=== PATIENT | female | born 1965 | race Caucasian/White ===

== ENCOUNTER 2023-07-21 09:17 | Day surgery (SDC) | payer OTHER, BC ==
[2023-07-21] MEDS ORDERED: Sodium Chloride 0.9% 1,000 ML IV SCH (09:45)
[2023-07-21] MEDS ORDERED: Propofol 200 MG/20 ML SDV ONE (10:32)
[2023-07-21] MEDS ORDERED: fentaNYL 100 MCG/2 ML SDV ONE (10:32)
[2023-07-21] MEDS ORDERED: Midazolam 1 MG/ML 2 ML SDV ONE (10:32)
== END 2023-07-21 13:22 | disposition home or self-care (01) ==
LOC: JP.SDS 09:17
PROVIDERS: ATTEND Surgery
DX: Z12.11 Encounter for screening for malignant neoplasm of colon (principal); Q43.8 Other specified congenital malformations of intestine; K21.9 Gastro-esophageal reflux disease without esophagitis
CPT/HCPCS: 45378; J2250; J2704; J3010; J7030

== ENCOUNTER 2023-10-07 15:38 | Emergency (ER) | payer OTHER, BC ==
[2023-10-07] MEDS ORDERED: Sodium Chloride 0.9% 10 ML Syringe FLUSH PRN ×2 (16:00→16:50)
[2023-10-07] MEDS ORDERED: HYDROmorphone 0.5 MG/0.5 ML Syringe IVPUSH ONE (16:02)
[2023-10-07 16:14] LABS: BASOPHILS ABSOLUTE AUTO 0.07 K/uL (0.00-0.10); BASOPHILS PERCENT AUTO 0.8 % (0.1-1.3); EOSINOPHILS PERCENT AUTO 8.3 % (0.0-5.4); HEMATOCRIT 41.2 % (34.3-46.0); HEMOGLOBIN 13.9 g/dL (11.2-15.5); IMMATURE GRAN PERCENT AUTO 0.2 % (0.0-0.7); LYMPHOCYTES ABSOLUTE AUTO 2.77 K/uL (0.8-3.3); MEAN CORPUSCULAR HGB CONC 33.7 g/dL (31.6-35.5); MONOCYTES ABSOLUTE AUTO 0.55 K/uL (0.20-0.90); MONOCYTES PERCENT AUTO 6.5 % (3.3-12.6); NEUTROPHILS ABSOLUTE AUTO 4.29 K/uL (1.0-7.6); NEUTROPHILS PERCENT AUTO 51.2 % (40.0-78.1); PLATELET COUNT,PLT 249 K/uL (130-375); RED BLOOD CELL COUNT 4.79 M/uL (3.77-5.24); WHITE BLOOD CELL COUNT,WBC 8.4 K/uL (3.2-11.0)
[2023-10-07 16:15] LABS: IMMATURE GRAN ABSOLUTE AUTO 0.02 K/uL (0.00-0.23)
[2023-10-07] MEDS ORDERED: Aspirin 81 MG Tab.Chew PO ONE (16:23)
[2023-10-07] MEDS ORDERED: Nitroglycerin 0.4 MG Tab.SL SL PRN (16:23)
[2023-10-07 16:36] LABS: A/G RATIO 1.2 (1.2-2.2); ALANINE AMINOTRANSFERASE,ALT 27 U/L (12-78); ALKALINE PHOSPHATASE 131 U/L (46-116); ANION GAP 12.3 mmol/L (5.0-14.0); ASPARTATE AMNIOTRANSFERASE,AST 17 U/L (15-37); BILIRUBIN TOTAL 0.1 mg/dL (0.2-1.0); BLOOD UREA NITROGEN,BUN 11 mg/dL (7-18); C-REACTIVE PROTEIN < 0.50 mg/dL (<0.50); CALCIUM 8.9 mg/dL (8.5-10.1); CARBON DIOXIDE,CO2 29 mmol/L (21-32); CHLORIDE,CL 104 mmol/L (100-108); EST CRCL DRUG DOSING (CG) 47.91 mL/min; ESTIMATED GFR 65 mL/min (>60); GLUCOSE RANDOM 101 mg/dL (74-106); POTASSIUM,K 3.3 mmol/L (3.6-5.2); PROTEIN TOTAL,TP 7.3 g/dL (6.4-8.2); SODIUM,NA 142 mmol/L (140-148)
[2023-10-07] MEDS ORDERED: Sodium Chloride 0.9% 1,000 ML IV ONE (16:40)
[2023-10-07] MEDS ORDERED: Sodium Chloride 0.9% 100 ML IV SCH (17:00)
[2023-10-07] MEDS ORDERED: Iopamidol 612 MG/ML 100 ML Bottle IV SCH (17:00)
[2023-10-07] MEDS ORDERED: Alum Hydrox/Mag Hydrox/Simeth 15 ML, Lidocaine 2% 15 ML PO ONE ×2 (18:11)
== END 2023-10-07 19:20 | disposition home or self-care (01) ==
LOC: JP.ED 15:38
DX: R10.13 Epigastric pain (principal); E78.00 Pure hypercholesterolemia, unspecified
CPT/HCPCS: 36415; 71045; 74177; 80053; 83605; 83690; 84484; 85025; 86140; 93005; 96361; 96374; 99285; A9270; J1170; J3490; J7030; Q9967; 93010; 99284

== ENCOUNTER 2024-04-12 16:39 | Day surgery (SDC) | payer BC, OTHER ==
[2024-04-12 18:44] LABS: BASOPHILS ABSOLUTE AUTO 0.05 K/uL (0.00-0.10); BASOPHILS PERCENT AUTO 0.3 % (0.1-1.3); EOSINOPHILS ABSOLUTE AUTO 0.07 K/uL (0.00-0.40); EOSINOPHILS PERCENT AUTO 0.5 % (0.0-5.4); HEMATOCRIT 43.2 % (34.3-46.0); HEMOGLOBIN 14.8 g/dL (11.2-15.5); IMMATURE GRAN ABSOLUTE AUTO 0.06 K/uL (0.00-0.23); IMMATURE GRAN PERCENT AUTO 0.4 % (0.0-0.7); LYMPHOCYTES PERCENT AUTO 12.9 % (11.4-47.7); MEAN CORPUSCULAR HEMOGLOBIN 28.7 pg (31.6-35.5); MEAN CORPUSCULAR HGB CONC 34.3 g/dL (31.6-35.5); MEAN CORPUSCULAR VOLUME 83.7 fL (81.4-99.0); MONOCYTES ABSOLUTE AUTO 1.06 K/uL (0.20-0.90); MONOCYTES PERCENT AUTO 6.9 % (3.3-12.6); NEUTROPHILS ABSOLUTE AUTO 12.22 K/uL (1.0-7.6); PLATELET COUNT,PLT 287 K/uL (130-375); RED BLOOD CELL COUNT 5.16 M/uL (3.77-5.24); WHITE BLOOD CELL COUNT,WBC 15.5 K/uL (3.2-11.0)
[2024-04-12 19:04] LABS: PROTHROMBIN TIME 9.9 sec (9.2-10.6); PTT,PARTIAL THROMBOPLSTIN TIME 28.6 sec (21.8-27.3)
[2024-04-12 19:07] LABS: A/G RATIO 1.1 (1.2-2.2); ALANINE AMINOTRANSFERASE,ALT 75 U/L (12-78); ALBUMIN 4.2 g/dL (3.4-5.0); ALKALINE PHOSPHATASE 144 U/L (46-116); ANION GAP 9.5 mmol/L (5.0-14.0); ASPARTATE AMNIOTRANSFERASE,AST 49 U/L (15-37); BILIRUBIN TOTAL 0.5 mg/dL (0.2-1.0); BLOOD UREA NITROGEN,BUN 17 mg/dL (7-18); CALCIUM 9.4 mg/dL (8.5-10.1); CARBON DIOXIDE,CO2 29 mmol/L (21-32); CHLORIDE,CL 102 mmol/L (100-108); CREATININE 1.2 mg/dL (0.6-1.0); EST CRCL DRUG DOSING (CG) 45.42 mL/min; ESTIMATED GFR 52 mL/min (>60); GLUCOSE RANDOM 121 mg/dL (74-106); POTASSIUM,K 3.9 mmol/L (3.6-5.2); PROTEIN TOTAL,TP 8.1 g/dL (6.4-8.2); SODIUM,NA 140 mmol/L (140-148); TROPONIN I HIGH SENSITIVITY 13.3 pg/mL (<=60.3)
[2024-04-12] MEDS: Pantoprazole 40 MG Vial IVPUSH ONE (19:14)
[2024-04-12] MEDS: diphenhydrAMINE 50 MG/ML SDV IVPUSH ONE (19:15)
[2024-04-12] MEDS: Prochlorperazine 10 MG/2 ML SDV IVPUSH ONE (19:15)
[2024-04-12] MEDS: Sodium Chloride 0.9% 1,000 ML IV ONE (19:15)
[2024-04-12] MEDS: Ketorolac 30 MG/ML SDV IVPUSH ONE (19:15)
[2024-04-12] MEDS: Sodium Chloride 0.9% 10 ML Syringe FLUSH PRN (19:16)
[2024-04-12] MEDS: Sodium Chloride 0.9% 1,000 ML IV SCH (21:16)
[2024-04-12] MEDS: Ampicillin/Sulbactam Na 3 GM in Sodium Chloride 0.9% 100 ML IV ONE (21:25)
[2024-04-12] MEDS ORDERED: fentaNYL 250 MCG/5 ML SDV ONE ×2 (21:31→22:57)
[2024-04-12] MEDS ORDERED: Rocuronium 50 MG/5 ML Vial ONE (21:32)
[2024-04-12] MEDS ORDERED: Succinylcholine 200 MG/10 ML MDV ONE (21:32)
[2024-04-12] MEDS ORDERED: Neostigmine Methylsulfate 10 MG/10 ML MDV ONE (21:32)
[2024-04-12] MEDS ORDERED: Glycopyrrolate 0.2 MG/ML 5 ML MDV ONE (21:32)
[2024-04-12] MEDS ORDERED: Propofol 200 MG/20 ML SDV ONE (21:32)
[2024-04-12] MEDS ORDERED: Dexamethasone 4 MG/ML SDV ONE (21:32)
[2024-04-12] MEDS: Bupivacaine 0.25%/EPINEPHrine 1:200,000 30 ML SDV ONE (22:58)
[2024-04-12] MEDS ORDERED: Bupivacaine 0.25%/EPINEPHrine 1:200,000 30 ML SDV ONE (23:32)
[2024-04-12] MEDS ORDERED: Lactated Ringers 1,000 ML ONE (23:36)
[2024-04-13] MEDS ORDERED: Ketorolac 30 MG/ML SDV ONE (00:10)
[2024-04-13] MEDS: Acetaminophen/oxyCODONE 325-5 MG Tab PO PRN (02:59)
== END 2024-04-13 03:00 | disposition home or self-care (01) ==
LOC: JP.ED 16:39 → JP.SDS 21:51
PROVIDERS: ATTEND Surgery
DX: K80.12 Calculus of gallbladder with acute and chronic cholecystitis without obstruction (principal); E78.00 Pure hypercholesterolemia, unspecified; F32.A Depression, unspecified; F41.9 Anxiety disorder, unspecified; Z79.899 Other long term (current) drug therapy
CPT/HCPCS: 00790; 36415; 47563; 76000; 76705; 80053; 83690; 84484; 85025; 85610; 85730; 86140; 88304; 93005; 93010; 96361; 96365; 96375; 99285; A9270; C1894; J0295; J0330; J0780; J1100; J1200; J1596; J1885; J2470; J2704; J2710; J3010; J3490; J7030; J7120